=== PATIENT | female | born 1985 | race Caucasian/White ===

== ENCOUNTER 2018-06-14 19:49 | Emergency (ER) | payer OTHER ==
[2018-06-14 20:34] VITALS: BP 111/72
[2018-06-14] MEDS ORDERED: Azithromycin TAB* 250 MG PO ONE (20:49)
[2018-06-14] MEDS ORDERED: Cyclobenzaprine TAB* 10 MG PO ONE (20:50)
--- NOTE | 2018-06-14 20:54 | UC ---
Back Pain HPI - HPI Summary HPI Summary: c/o lower back pain that radiates down both legs to the back of her knees since 06/09/18. Pt is not sure how she injured her back, just started hurting. Denies any past back pain, or any urinary symptoms. - History of Current Complaint Chief Complaint: UCBackPain Stated Complaint: LOW BACK PAIN, CONGESTION Time Seen by Provider: 06/14/18 20:40 Hx Obtained From: Patient Hx Last Menstrual Period: 05/17/18 ?: No Onset/Duration: Sudden Onset, Lasting Days Timing: Constant Severity Initially: Moderate Severity Currently: Moderate Pain Intensity: 7 Character: Dull, Throbbing, Spasmodic Aggravating Factor(s): Movement Alleviating Factor(s): Rest - Allergies/Home Medications Allergies/Adverse Reactions: Allergies Allergy/AdvReac Type Severity Reaction Status Date / Time No Known Allergies Allergy Verified 06/14/18 20:34 Home Medications: Home Medications Cyanocobalamin (Vitamin B-12) [B-12] 5,000 mcg PO WEEKLY 06/14/18 [History Confirmed 06/14/18] Escitalopram Oxalate [Lexapro 10 mg] 10 mg PO DAILY 06/14/18 [History Confirmed 06/14/18] Multivitamin [Multivitamins] 1 cap PO TID 06/14/18 [History Confirmed 06/14/18] PMH/Surg Hx/FS Hx/Imm Hx Previously Healthy: Yes - Surgical History Surgical History: Yes Surgery Procedure, Year, and Place: gastric bypass - Family History Known Family History: Positive: Hypertension - Social History Alcohol Use: Rare Substance Use Type: None Smoking Status (MU): Never Smoked Tobacco Review of Systems All Other Systems Reviewed And Are Negative: Yes Constitutional: Positive: Negative Skin: Positive: Negative Eyes: Positive: Negative ENT: Positive: Sore Throat, Nasal Discharge, Sinus Congestion, Sinus Pain/ Tenderness Respiratory: Positive: Shortness Of Breath, Cough Cardiovascular: Positive: Negative Gastrointestinal: Positive: Negative Genitourinary: Positive: Negative Motor: Positive: Negative Neurovascular: Positive: Negative Musculoskeletal: Positive: Decreased ROM, Myalgia Neurological: Positive: Negative Is Patient Immunocompromised?: No Physical Exam Triage Information Reviewed: Yes Appearance: Well-Nourished, Ill-Appearing, Pain Distress Vital Signs: Initial Vital Signs Temp 98.9 F 06/14/18 20:26 Pulse 95 06/14/18 20:26 Resp 16 06/14/18 20:26 BP 111/72 06/14/18 20:26 Pulse Ox 99 06/14/18 20:26 Vital Signs Reviewed: Yes Eye Exam: Normal ENT: Positive: Pharyngeal erythema - wiht PND, TM red, Dental tenderness, Sinus tenderness Dental Exam: Normal Neck exam: Normal Respiratory Exam: Normal Respiratory: Positive: Chest non-tender, Lungs clear, Normal breath sounds Cardiovascular Exam: Normal Cardiovascular: Positive: RRR, No Murmur, Pulses Normal Abdominal Exam: Normal Abdomen Description: Positive: Nontender, No Organomegaly, Soft Musculoskeletal Exam: Normal Musculoskeletal: Positive: Strength Intact, ROM Intact, No Edema, Other: - ROM unaffected, just very sore with trunk rotation Neurological Exam: Normal Psychological Exam: Normal Skin Exam: Normal Back Pain Course/Dx - Course Course Of Treatment: hx obtained, exam performed ,meds reviewed, treated for sinusitis demonstrated appropriate stretches, given flexeril and educated on use of heat with stretching. - Differential Dx/Diagnosis Differential Diagnosis/HQI/PQRI: Strain, Sprain Provider Diagnosis: Low back strain, Sinusitis Discharge - Sign-Out/Discharge Documenting (check all that apply): Patient Departure All imaging exams completed and their final reports reviewed: No Studies - Discharge Plan Condition: Stable Disposition: HOME Prescriptions: Azithromycin TAB* [Zithromax TAB (Z-FELISHA) 250 mg #6 tabs] 250 mg PO DAILY #4 tab Cyclobenzaprine TAB* [Flexeril 10 MG TAB*] 10 mg PO TID PRN #12 tab PRN Reason: Spasms Patient Education Materials: Sinusitis (ED), Low Back Strain (ED), Core Strengthening Exercises (GEN), Lower Back Exercises (ED) Referrals: No Primary Care Phys,NOPCP [Primary Care Provider] - Additional Instructions: 1. rest, use the felxeril as prescribed. 2. Use tylenol as neede for pain 3. Stretch and heat 4. FOllow up as needed. - Billing Disposition and Condition Condition: STABLE Disposition: Home - Attestation Statements Provider Attestation: Per institutional requirements, I have reviewed the chart, however, I was not consulted specifically or made aware of this patient by the midlevel provider. I did not personally evaluate, interact with , or disposition this patient.
== END 2018-06-14 21:17 | disposition home or self-care (01) ==
LOC: UCCORT 19:49
DX: S39.012A Strain of muscle, fascia and tendon of lower back, initial encounter (principal); J32.9 Chronic sinusitis, unspecified; X58.XXXA Exposure to other specified factors, initial encounter; Y92.9 Unspecified place or not applicable
CPT/HCPCS: 99212; A9270-GY; G0463

== ENCOUNTER 2019-02-08 10:03 | Emergency (ER) | payer OTHER ==
[2019-02-08 10:43] VITALS: BP 115/64
--- NOTE | 2019-02-08 11:59 | UC ---
Dental HPI - HPI Summary HPI Summary: 33-year-old female who has had a left lower toothache for approximately one or 2 weeks. She has had a broken tooth of tooth number 19 for quite some time. She denies any fever or chills. States today the pain radiates to her left ear and down the left side of her neck. - History of Current Complaint Chief Complaint: UCDentalProblem Stated Complaint: DENTAL Time Seen by Provider: 02/08/19 11:58 Hx Obtained From: Patient Hx Last Menstrual Period: 01/11/19; nexplanon ?: No Onset/Duration: Gradual Onset Severity: Moderate Pain Intensity: 7 Aggravating Factor(s): Chewing Alleviating Factor(s): Nothing - Allergies/Home Medications Allergies/Adverse Reactions: Allergies Allergy/AdvReac Type Severity Reaction Status Date / Time No Known Allergies Allergy Verified 02/08/19 10:37 PMH/Surg Hx/FS Hx/Imm Hx Previously Healthy: Yes - Surgical History Surgical History: Yes Surgery Procedure, Year, and Place: gastric bypass - Family History Known Family History: Positive: Hypertension - Social History Alcohol Use: Rare Substance Use Type: None Smoking Status (MU): Never Smoked Tobacco Review of Systems All Other Systems Reviewed And Are Negative: Yes ENT: Positive: Dental Pain - Left lower jaw pain and tooth #19 is broken. Is Patient Immunocompromised?: No Physical Exam Triage Information Reviewed: Yes Appearance: Well-Appearing, No Pain Distress, Well-Nourished Vital Signs: Initial Vital Signs Temp 98.3 F 02/08/19 10:38 Pulse 56 02/08/19 10:38 Resp 16 02/08/19 10:38 BP 115/64 02/08/19 10:38 Pulse Ox 99 02/08/19 10:38 Vital Signs Reviewed: Yes Eyes: Positive: Conjunctiva Clear ENT: Positive: Pharynx normal, TMs normal, Dental tenderness - Tenderness at the gumline where tooth #19 has been completely broken off at the gumline. There is some yellow pus drainage present but no abscess formation., Uvula midline Neck: Positive: Supple, Nontender, No Lymphadenopathy Respiratory: Positive: Lungs clear, Normal breath sounds, No respiratory distress, No accessory muscle use Cardiovascular: Positive: RRR, No Murmur, Pulses Normal, Brisk Capillary Refill Musculoskeletal Exam: Normal Neurological Exam: Normal Psychological Exam: Normal Skin Exam: Normal Dental Complaint Course/Dx - Course Course Of Treatment: The patient has no dentist because of her fear of dentists however I advised her she is going to need to follow-up with one to have the rest of the broken tooth removed. She is aware of this. In the meantime she can alternate Tylenol and Motrin as directed, take the antibiotic but definite follow-up with the dentist in the next week. - Differential Dx/Diagnosis Provider Diagnosis: Toothache Discharge ED - Sign-Out/Discharge Documenting (check all that apply): Patient Departure All imaging exams completed and their final reports reviewed: No Studies - Discharge Plan Condition: Good Disposition: HOME Prescriptions: Amoxicillin PO (*) [Amoxicillin 875 MG (*)] 875 mg PO BID 10 Days #20 tab Patient Education Materials: Toothache (ED) Referrals: No Primary Care Phys,NOPCP [Primary Care Provider] - [facility] [Outside] Additional Instructions: May alternate Tylenol every 4 hours with Motrin every 8 hours for pain. Follow- up with a dentist as soon as possible for further care for your broken tooth. If you develop any worsening symptoms facial swelling, fever and chills and go to the emergency room for further treatment. - Billing Disposition and Condition Condition: GOOD Disposition: Home - Attestation Statements Provider Attestation: I was available for consult. This patient was seen by the MAK. The patient was not presented to, seen by, or examined by me. -Jenny
== END 2019-02-08 12:09 | disposition home or self-care (01) ==
LOC: UCCORT 10:03
DX: K08.89 Other specified disorders of teeth and supporting structures (principal)
CPT/HCPCS: 99212; G0463